=== PATIENT | male | born 1990 | race Two or more races ===

== ENCOUNTER → 2017-01-24 | Outpatient (CLI) | payer OTHER ==
[2017-01-24 10:19] LABS: NON PROGRESSIVE MOTILITY (c) 18 %; PROGRESSIVE MOTILITY (a) 28 % (>=32); TOTAL MOTILITY 46 % (>=40)
[2017-01-24 10:20] LABS: % NORMAL FORMS 6 % (>=4); IMMOTILITY 54 %; SPERM# 178.2 M/Ejac (33-46); TOTAL FUNCTIONAL 7.2 M/Ejac.; TOTAL PROGRESSIVE SPERM 49.5 M/Ejac.
[2017-01-24 10:37] LABS: PROLACTIN 4.5 NG/ML (2.1-17.7)
[2017-01-24 10:39] LABS: ESTRADIOL 36.6 PG/ML (<39.8); FOLLICLE STIMULATING HORMONE 3.7 mIU/mL (1.4-18.1)
== END ==
LOC: M LAB 08:44
PROVIDERS: ATTEND Nurse Practitioner Women's Health
DX: N46.9 Male infertility, unspecified (principal)

== ENCOUNTER → 2017-02-14 | Outpatient (CLI) | payer OTHER ==
--- NOTE | 2017-02-14 14:47 | REP ---
SCROTAL SONOGRAPHY: HISTORY: Infertility. Question varicocele. No comparison studies. FINDINGS: High-resolution bilateral scrotal sonography shows homogeneous testicular parenchyma bilaterally. No intratesticular mass lesion is seen. Right testis measures 4.1 x 2.2 x 2.7 cm. Left testicular dimensions are 3.9 x 2.2 x 2.7 cm. Epididymides are unremarkable. There are very small bilateral hydroceles, right more so than left. Normal Doppler blood flow is seen in both testes. Resistive indices are 0.55 on the right and 0.58 on the left. There are two cysts in the head of the epididymis on the left the largest of which measures 2.8 mm. IMPRESSION: Normal scrotal sonography. Signed by Nitish Mahoney MD 02/14/2017 05:00 P
== END ==
LOC: M SMT 12:58
PROVIDERS: ATTEND Urology
DX: N46.9 Male infertility, unspecified (principal)

== ENCOUNTER → 2017-05-23 | Outpatient (REF) | payer OTHER ==
[2017-05-23 15:50] LABS: % NORMAL FORMS 4 % (>=4); IMMOTILITY 71 %; NON PROGRESSIVE MOTILITY (c) 13 %; PROGRESSIVE MOTILITY (a) 16 % (>=32); SPERM# 238.8 M/Ejac (33-46); TOTAL FUNCTIONAL 3.7 M/Ejac.; TOTAL MOTILITY 29 % (>=40)
== END ==
LOC: M SMT 15:36
PROVIDERS: ATTEND Urology
DX: F52.4 Premature ejaculation (principal); N46.9 Male infertility, unspecified